=== PATIENT | female | born 1965 | race Caucasian/White ===

== ENCOUNTER 2018-11-12 05:59 | Emergency (ER) | payer SELFPAY ==
[~2018-11-12] VITALS: Ht 160 cm; Wt 95.4 kg
[2018-11-12 06:37] LABS: BASO % 0 % (0-3); EOS % 0 % (0-3); HEMOGLOBIN 12.8 g/dL (12.0-15.5); LYMPH # 0.6 x10^3/uL (1.0-4.8); LYMPH % 6 % (24-48); MEAN CORPUSCULAR HEMOGLOBIN 31 pg (25-35); MEAN CORPUSCULAR HGB CONC 34 g/dL (31-37); MEAN CORPUSCULAR VOLUME 91 fL (79-100); MONO # 0.3 x10^3/uL (0.0-1.1); MONO % 3 % (0-9); NEUT # 8.6 x10^3uL (1.8-7.7); NEUT % 90 % (31-73); PLATELET COUNT 333 x10^3/uL (140-400); RED CELL DISTRIBUTION WIDTH 13.5 % (11.5-14.5); WHITE BLOOD COUNT 9.5 x10^3/uL (4.0-11.0)
[2018-11-12 06:48] LABS: CREATININE 0.7 mg/dL (0.6-1.0); GFR 88.6; POTASSIUM 3.7 mmol/L (3.5-5.1)
[2018-11-12 06:54] LABS: ALBUMIN 3.3 g/dL (3.4-5.0); ALBUMIN/GLOBULIN RATIO 0.7 (1.0-1.7); TOTAL BILIRUBIN 0.3 mg/dL (0.2-1.0); TOTAL PROTEIN 7.9 g/dL (6.4-8.2)
[2018-11-12] MEDS ORDERED: KETOROLAC 30 MG/ML VIAL. IV ONE (07:00)
[2018-11-12] MEDS ORDERED: IV NORMAL SALINE 1000ML BAG 1,000 ML IV SCH (07:00)
[2018-11-12 08:09] VITALS: BP 150/85
[2018-11-12] MEDS ORDERED: IOHEXOL 300 MG/ML 100ML VIAL. IV ONE (08:45)
--- NOTE | 2018-11-12 08:49 | RAD ---
PQRS Compliance statement: One or more of the following individualized dose reduction techniques were utilized for this examination: 1. Automated exposure control. 2. Adjustment of the mA and/or kV according to patient size. 3. Use of iterative reconstruction technique. Indication:Upper abdominal pain and vomiting. TECHNIQUE: CT abdomen and pelvis with IV contrast with multiplanar reformats. COMPARISON: None FINDINGS: Heart is normal in size. No pericardial or pleural effusion. Clear lung bases. Liver, spleen, pancreas, adrenals within normal limits. Gallbladder is distended. No radiopaque gallstones. No nephrolithiasis or hydronephrosis. No free pelvic fluid or ascites. Short segment circumferential wall thickening with pericolonic inflammatory changes seen in the sigmoid colon. Few scattered diverticuli seen in the colon. No bowel obstruction. Normal appendix. Anteverted uterus. Urinary bladder demonstrates no radiopaque stone. Wall thickening is seen of the dome of urinary bladder likely reactive from adjacent inflammatory process in the sigmoid colon. No enlarged retroperitoneal or pelvic adenopathy. No suspicious bony lesion. IMPRESSION: 1. Findings of sigmoid diverticulitis. 2. Distended gallbladder with gallbladder wall thickening. Findings may be secondary to acute cholecystitis in right clinical setting. Further evaluation with HIDA scan recommended if there is concern for acute cholecystitis. Electronically signed by: Camacho Shaw DO (11/12/2018 8:46 AM) [facility]
[2018-11-12 08:51] LABS: BILIRUBIN,URINE NEGATIVE (NEG); CLARITY,URINE CLEAR; COLOR,URINE YELLOW; NITRITE,URINE NEGATIVE (NEG); PROTEIN,URINE NEGATIVE (NEG-TRACE); UROBILINOGEN,URINE 0.2 mg/dL (0.2 mg/dL)
[2018-11-12] MEDS ORDERED: AMOX1TAB61 PO (09:03)
[2018-11-12] MEDS ORDERED: ONDA4TAB7 PO (09:03)
[2018-11-12] MEDS ORDERED: HYDR-3164 PO (09:03)
[2018-11-12] MEDS ORDERED: METR500T PO (09:03)
--- NOTE | 2018-11-12 09:03 | PHYS DOC ---
Past Medical History Past Medical History: No Pertinent History Alcohol Use: None Drug Use: None Adult General Chief Complaint Chief Complaint: ABDOMINAL PAIN HPI HPI Patient is a 52-year-old female who presents with complaint of upper abdominal pain that started last night at 11 PM. She indicates that she had one episode of nausea with vomiting but states the nausea has improved. She rates pain at a 7 out of 10. She denies any fever, chest pain or shortness breath. Patient states that nothing improves her symptoms. She indicates that there was worsened if she tries to eat. She states that nothing is improving her symptoms. She does i ndicate that the pain does radiate into her back somewhat.[] Review of Systems Review of Systems Constitutional: Denies fever or chills [] Respiratory: Denies cough or shortness of breath [] Cardiovascular: No additional information not addressed in HPI [] GI: Complains of abdominal pain with nausea and vomiting. Denies diarrhea [] Integument: Denies rash or skin lesions [] Neurologic: Denies headache, focal weakness or sensory changes [] All other systems were reviewed and found to be within normal limits, except as documented in this note. Current Medications Current Medications Current Medications Medications (Trade) Dose Ordered Sig/Deana Start Time Stop Time Status Last Admin Dose Admin Iohexol (Omnipaque 300 Mg/ml) 75 ml 1X ONCE 11/12/18 08:45 11/12/18 08:46 DC 11/12/18 08:45 75 ML Ketorolac Tromethamine (Toradol 30mg Vial) 30 mg 1X ONCE 11/12/18 07:00 11/12/18 07:01 DC 11/12/18 06:52 30 MG Sodium Chloride 1,000 ml @ 1,000 mls/hr Q1H 11/12/18 07:00 11/12/18 07:59 DC 11/12/18 06:52 1,000 MLS/HR Allergies Allergies Allergies Coded Allergies Type Severity Reaction Last Updated Verified No Known Drug Allergies 11/12/18 No Physical Exam Physical Exam Constitutional: Well developed, well nourished, no acute distress, non-toxic appearance. [] HENT: Normocephalic, atraumatic, bilateral external ears normal, oropharynx moist, no oral exudates, nose normal. [] Eyes: PERRLA, EOMI, conjunctiva normal, no discharge. [] Neck: Normal range of motion, no tenderness, supple, no stridor. [] Cardiovascular: Regular rate and rhythm[] Lungs & Thorax: Bilateral breath sounds clear to auscultation [] Abdomen: Bowel sounds normal, soft, with epigastric and left mid to lower abdominal tenderness. [] Skin: Warm, dry, no erythema, no rash. [] Extremities: No tenderness, no cyanosis, no clubbing, ROM intact, no edema. [] Neurologic: Alert and oriented X 3, no focal deficits noted. [] Current Patient Data Vital Signs Vital Signs Date Time Temp Pulse Resp B/P (MAP) Pulse Ox O2 Delivery O2 Flow Rate FiO2 11/12/18 08:09 18 150/85 (106) 94 Room Air 11/12/18 06:12 98.3 98.3 Lab Values Laboratory Tests Test 11/12/18 06:25 11/12/18 08:42 White Blood Count 9.5 x10^3/uL (4.0-11.0) Red Blood Count 4.20 x10^6/uL (3.50-5.40) Hemoglobin 12.8 g/dL (12.0-15.5) Hematocrit 38.0 % (36.0-47.0) Mean Corpuscular Volume 91 fL (79-100) Mean Corpuscular Hemoglobin 31 pg (25-35) Mean Corpuscular Hemoglobin Concent 34 g/dL (31-37) Red Cell Distribution Width 13.5 % (11.5-14.5) Platelet Count 333 x10^3/uL (140-400) Neutrophils (%) (Auto) 90 % (31-73) H Lymphocytes (%) (Auto) 6 % (24-48) L Monocytes (%) (Auto) 3 % (0-9) Eosinophils (%) (Auto) 0 % (0-3) Basophils (%) (Auto) 0 % (0-3) Neutrophils # (Auto) 8.6 x10^3uL (1.8-7.7) H Lymphocytes # (Auto) 0.6 x10^3/uL (1.0-4.8) L Monocytes # (Auto) 0.3 x10^3/uL (0.0-1.1) Eosinophils # (Auto) 0.0 x10^3/uL (0.0-0.7) Basophils # (Auto) 0.0 x10^3/uL (0.0-0.2) Segmented Neutrophils % 88 % (35-66) H Band Neutrophils % 1 % (0-9) Lymphocytes % 6 % (24-48) L Monocytes % 5 % (0-10) Platelet Estimate Adequate (ADEQUATE) Sodium Level 135 mmol/L (136-145) L Potassium Level 3.7 mmol/L (3.5-5.1) Chloride Level 99 mmol/L (98-107) Carbon Dioxide Level 27 mmol/L (21-32) Anion Gap 9 (6-14) Blood Urea Nitrogen 9 mg/dL (7-20) Creatinine 0.7 mg/dL (0.6-1.0) Estimated GFR (Cockcroft-Gault) 88.6 BUN/Creatinine Ratio 13 (6-20) Glucose Level 141 mg/dL (70-99) H Calcium Level 9.0 mg/dL (8.5-10.1) Total Bilirubin 0.3 mg/dL (0.2-1.0) Aspartate Amino Transferase (AST) 17 U/L (15-37) Alanine Aminotransferase (ALT) 28 U/L (14-59) Alkaline Phosphatase 124 U/L (46-116) H Troponin I Quantitative < 0.017 ng/mL (0.000-0.055) Total Protein 7.9 g/dL (6.4-8.2) Albumin 3.3 g/dL (3.4-5.0) L Albumin/Globulin Ratio 0.7 (1.0-1.7) L Lipase 111 U/L (73-393) Urine Collection Type Void Urine Color Yellow Urine Clarity Clear Urine pH 7.0 Urine Specific [place] 1.010 Urine Protein Negative mg/dL (NEG-TRACE) Urine Glucose (UA) Negative mg/dL (NEG) Urine Ketones (Stick) 40 mg/dL (NEG) Urine Blood Negative (NEG) Urine Nitrite Negative (NEG) Urine Bilirubin Negative (NEG) Urine Urobilinogen Dipstick 0.2 mg/dL (0.2 mg/dL) Urine Leukocyte Esterase Negative (NEG) Urine RBC 0 /HPF (0-2) Urine WBC 0 /HPF (0-4) Urine Squamous Epithelial Cells Occ /LPF Urine Bacteria 0 /HPF (0-FEW) Laboratory Tests 11/12/18 06:25 Laboratory Tests 11/12/18 06:25 EKG EKG [] Radiology/Procedures Radiology/Procedures [] Impressions: PROCEDURE: CT ABD PELV W/ IV CONTRST ONLY PQRS Compliance statement: One or more of the following individualized dose reduction techniques were utilized for this examination: 1. Automated exposure control. 2. Adjustment of the mA and/or kV according to patient size. 3. Use of iterative reconstruction technique. Indication:Upper abdominal pain and vomiting. TECHNIQUE: CT abdomen and pelvis with IV contrast with multiplanar reformats. COMPARISON: None FINDINGS: Heart is normal in size. No pericardial or pleural effusion. Clear lung bases. Liver, spleen, pancreas, adrenals within normal limits. Gallbladder is distended. No radiopaque gallstones. No nephrolithiasis or hydronephrosis. No free pelvic fluid or ascites. Short segment circumferential wall thickening with pericolonic inflammatory changes seen in the sigmoid colon. Few scattered diverticuli seen in the colon. No bowel obstruction. Normal appendix. Anteverted uterus. Urinary bladder demonstrates no radiopaque stone. Wall thickening is seen of the dome of urinary bladder likely reactive from adjacent inflammatory process in the sigmoid colon. No enlarged retroperitoneal or pelvic adenopathy. No suspicious bony lesion. IMPRESSION: 1. Findings of sigmoid diverticulitis. 2. Distended gallbladder with gallbladder wall thickening. Findings may be secondary to acute cholecystitis in right clinical setting. Further evaluation with HIDA scan recommended if there is concern for acute cholecystitis. Electronically signed by: Camacho Shaw DO (11/12/2018 8:46 AM) [facility] Course & Med Decision Making Course & Med Decision Making Pertinent Labs and Imaging studies reviewed. (See chart for details) [] Dragon Disclaimer Dragon Disclaimer This electronic medical record was generated, in whole or in part, using a voice recognition dictation system. Departure Departure Impression: Primary Impression: Diverticulitis Additional Impression: Thickening of wall of gallbladder Disposition: 01 HOME, SELF-CARE Condition: STABLE Referrals: LEANDRO VELASQUEZ (PCP) Patient Instructions: Diverticulitis, HIDA (Hepatobilliary) Scan Scripts Metronidazole (FLAGYL) 500 Mg Tablet 500 MG PO TID, #30 TAB Prov: ALEX BAUM Jr., DO 11/12/18 Amoxicillin/Potassium Clav (AUGMENTIN 875-125 TABLET) 1 Each Tablet 1 TAB PO BID, #20 TAB Prov: ALEX BAUM Jr. DO 11/12/18 Hydrocodone/Apap 5-325 (NORCO 5-325 TABLET) 1 Each Tablet 1 EACH PO PRN Q6HRS PRN for PAIN, #15 as needed for pain Prov: ALEX BAUM Jr. DO 11/12/18 Ondansetron Hcl (ZOFRAN) 4 Mg Tablet 4 MG PO PRN TID PRN for NAUSEA, #15 nausea/vomiting Prov: ALEX BAUM Jr. DO 11/12/18 Problem Qualifiers ALEX BAUM Jr. DO Nov 12, 2018 09:03
[2018-11-12 09:09] LABS: BACTERIA,URINE 0 /HPF (0-FEW); RBC,URINE 0 /HPF (0-2); SQUAMOUS EPITHELIAL CELL,UR OCC /LPF; WBC,URINE 0 /HPF (0-4)
[2018-11-12 09:38] LABS: % BANDS 1 % (0-9); % LYMPHS 6 % (24-48); % MONOS 5 % (0-10); % SEGS 88 % (35-66); PLT ESTIMATE ADEQUATE (ADEQUATE)
== END 2018-11-12 09:12 | disposition home or self-care (01) ==
LOC: ER 05:59
DX: K57.32 Diverticulitis of large intestine without perforation or abscess without bleeding (principal); K82.8 Other specified diseases of gallbladder; R11.2 Nausea with vomiting, unspecified
CPT/HCPCS: 36415; 74177; 80053; 81001; 83690; 84484; 85007; 85025; 96361; 96374; 99285; J1885; J7030; Q9967